=== PATIENT | female | born 1980 | race Caucasian/White ===

== ENCOUNTER 2016-10-25 16:09 | Emergency (ER) | payer MEDICARE, MEDICAID ==
[~2016-10-25] VITALS: Ht 160 cm; Wt 135.0 kg
[~2016-10-25 16:09] MED LIST: CIPR500T4 PO; METO10TA PO; [UNRECOGNIZED DRUG - CODE] PO
[2016-10-25 16:30] VITALS: BP 160/99; PULSE 88; RESP 16; TEMP 99.7; O2SAT 98
--- NOTE | 2016-10-25 17:05 | PD ---
HPI Chief Complaint: Laceration/Skin Injury Time Seen by Provider: 17:03 Travel History International Travel<30 days: No Contact w/Intl Traveler<30days: No Traveled to known affect area: No History of Present Illness HPI 36-year-old female presents to the ED for evaluation of right toe laceration, sustained approximately 11 AM while taking shower. On presentation she endorses pain of the great toe, worsened with ambulation. She also endorses numbness. She denies weakness, tingling, limitations to range of motion of the extremity. She is unsure lasted a tetanus immunization. No treatment of that home. NKDA. PFSH Past Medical History Anxiety: Yes Diminished Hearing: No Headaches: Yes : 1 Para: 0 Social History Alcohol Use: No Tobacco Use: No Substance Use: No Allergies-Medications (Allergen,Severity, Reaction): Coded Allergies: No Known Allergies (Verified , 10/25/16) Reported Meds & Prescriptions Reported Meds & Active Scripts Active No Active Prescriptions or Reported Medications Review of Systems Except as stated in HPI: all other systems reviewed are Neg Physical Exam Narrative GENERAL: Well-nourished, well-developed obese white female in no acute distress. SKIN: Warm and dry. There is a 1.5 cm laceration of the lateral aspect of the left great toe. No active bleeding or visible foreign body. HEAD: Normocephalic. EYES: No scleral icterus. No injection or drainage. NECK: Supple, trachea midline. No JVD or lymphadenopathy. CARDIOVASCULAR: Regular rate and rhythm without murmurs, gallops, or rubs. RESPIRATORY: Breath sounds equal bilaterally. No accessory muscle use. GASTROINTESTINAL: Abdomen soft, non-tender, nondistended. MUSCULOSKELETAL: No cyanosis, or edema. Focused F lower extremity exam: 2+ radial pulse. Patient is able to flex and extend the toes and ankle. Cap refill less than 2 seconds. Sensation intact to light touch distally. BACK: Nontender without obvious deformity. No CVA tenderness. Data Data Last Documented VS Vital Signs Date Time Temp Pulse Resp B/P Pulse Ox O2 Delivery O2 Flow Rate FiO2 10/25/16 16:30 99.7 88 16 160/99 98 Orders Lidocaine 1% Inj (50 Ml) (Xylocaine 1% I (10/25/16 17:15) Tetanus/Diphtheria Tox Adult (Tetanus/Di (10/25/16 17:15) [facility] Medical Decision Making Medical Screen Exam Complete: Yes Emergency Medical Condition: Yes Differential Diagnosis laceration versus abrasion versus need for tetanus prophylaxis versus other Narrative Course 36-year-old female presents to the ED for evaluation of right toe laceration, sustained approximately 11 AM while taking shower. On presentation she endorses pain of the great toe, worsened with ambulation. She also endorses numbness. She denies weakness, tingling, limitations to range of motion of the extremity. She is unsure lasted a tetanus immunization. Vitals reviewed. Physical exam reveals a 1.5 cm laceration of the lateral aspect of the left great toe. No active bleeding or visible foreign body. No limitations to range of motion of the toe. Tetanus immunization was updated. Wound was closed with Dermabond. Please see my procedure note for details. Patient was instructed to monitor for signs of infection, follow up with the primary care provider. She indicated understanding of the instructions and is amenable to plan of care is. Patient is stable and discharged home. Procedures Procedure Narrative LACERATION LOCATION: Right great toe LENGTH: 1.5 cm NUMBER OF STITCHES/NEERU: None, closed with Dermabond REPAIR: The area of the laceration was prepped with Betadine and sterilely draped. A digital block was formed with 1% lidocaine. Good anesthesia was obtained. The wound was copiously irrigated and explored without evidence of foreign body, tendon injury or neurovascular injury. The wound was closed using Dermabond. This was a single layer repair. A sterile dressing was applied. The patient was advised to keep the dressing clean and dry. Patient tolerated the procedure well. Diagnosis Primary Impression: Laceration of right great toe Qualified Code: S91.111A - Laceration of right great toe without foreign body present or damage to nail, initial encounter Referrals: Primary Care Physician Patient Instructions: General Instructions, Laceration (ED) Additional Instructions: Rest, hydrate. The Dermabond creates a water tight dressing and will follow off on its own. You may bathe normally. Do not submerge the wound. Utilize [id number] pain medications, as described on the label, as needed. Monitor for signs of infection as discussed. Follow-up with your primary care provider next week. Return to the ED for any urgent or emergent medical condition. Scripts No Active Prescriptions or Reported Meds Disposition: 01 DISCHARGE HOME Condition: Stable Bessie Marshall Oct 25, 2016 17:05
[2016-10-25] MEDS ORDERED: LIDOCAINE HCL 1% 50 ML VIAL INFIL ONE (17:15)
[2016-10-25] MEDS ORDERED: TETANUS/DIPHTHERIA TOXOID ADULT 0.5 ML VIAL IM ONE (17:15)
== END 2016-10-25 17:48 | disposition home or self-care (01) ==
LOC: PHED 16:09 → PHEFT 17:48
DX: S91.111A Laceration without foreign body of right great toe without damage to nail, initial encounter (principal); R20.0 Anesthesia of skin; X58.XXXA Exposure to other specified factors, initial encounter; Y93.E1 Activity, personal bathing and showering; Y92.002 Bathroom of unspecified non-institutional (private) residence as the place of occurrence of the external cause; Z23 Encounter for immunization
CPT/HCPCS: 12001; 90471; 90714

== ENCOUNTER 2017-02-23 11:57 | Emergency (ER) | payer MEDICARE, MEDICAID ==
[~2017-02-23] VITALS: Ht 162.6 cm; Wt 133.7 kg
[2017-02-23 12:02] VITALS: BP 134/90; PULSE 82; RESP 18; TEMP 99.9; O2SAT 99
[2017-02-23] MEDS ORDERED: CYCL1TAB PO (12:10)
--- NOTE | 2017-02-23 12:20 | PD ---
HPI . sore throat x 1 day Chief Complaint: ENT Complaint Time Seen by Provider: 12:19 Travel History International Travel<30 days: No Contact w/Intl Traveler<30days: No Traveled to known affect area: No History of Present Illness HPI 36 yr old female here with c/o sore throat x 1 day. She denies any difficulty breathing. She wants something for relief. No fever or chills or other symptoms. PFSH Past Medical History Anxiety: Yes Diabetes: Yes Patient Takes Glucophage: No Diminished Hearing: No Headaches: Yes ?: Not LMP: last month : 1 Para: 0 Past Surgical History Surgical History: No Previous Surgery Social History Alcohol Use: No Tobacco Use: No Substance Use: No Allergies-Medications (Allergen,Severity, Reaction): Coded Allergies: No Known Allergies (Verified , 02/23/17) Reported Meds & Prescriptions Reported Meds & Active Scripts Active Lidocaine Viscous Liq 2 % Liqd 5 Ml SWISH-SWAL QID PRN 5 Days Reported Cyclafem 1/35 (Norethindrone-Ethinyl Estradiol) 1-35 Mg-Mcg Tab 1 Tab PO DAILY Review of Systems General / Constitutional: No: Fever Eyes: No: Visual changes HENT: Positive: Sore Throat, No: Headaches Cardiovascular: No: Chest Pain or Discomfort Respiratory: No: Shortness of Breath Gastrointestinal: No: Abdominal Pain Genitourinary: No: Dysuria Musculoskeletal: No: Pain Skin: No Rash Neurologic: No: Weakness Psychiatric: No: Depression Endocrine: No: Polydipsia Hematologic/Lymphatic: No: Easy Bruising Physical Exam Narrative GENERAL: AAO x 3, no acute distress, Well-nourished, well-developed patient. SKIN: Warm and dry. No visible rashes or bruising. HEAD: Normocephalic and atraumatic. EYES: No scleral icterus. No injection or drainage. ENT: No nasal drainage noted. Mucous membranes pink. Airway patent. normal oropharynx, TM normal. NECK: Supple, trachea midline. No JVD. no lymphadenopathy CARDIOVASCULAR: Regular rate and rhythm without murmurs, gallops, or rubs. RESPIRATORY: Breath sounds equal bilaterally. No accessory muscle use. No rhonchi or rales. GASTROINTESTINAL: Abdomen soft, non-tender, EXTREMITIES: No cyanosis or edema. BACK: Nontender without obvious deformity. No CVA tenderness. NEURO: CN II-12 intact PSYCH: AAO x 3, normal affect. Data Data Last Documented VS Vital Signs Date Time Temp Pulse Resp B/P Pulse Ox O2 Delivery O2 Flow Rate FiO2 02/23/17 12:02 99.9 82 18 134/90 99 [facility] Medical Decision Making Medical Screen Exam Complete: Yes Emergency Medical Condition: Yes Medical Record Reviewed: Yes Differential Diagnosis pharyngitis, GERD, less likely esophagitis, viral syndrome Narrative Course 36 yr old female here with sore throat. Exam is unremarkable. Recommend Swish and Swallow for relief. Patient verbalized understanding of instructions, questions were answered, and thanked me for their care. I advised them if their condition worsens, please return to the nearest emergency room for further care. Diagnosis Primary Impression: Viral pharyngitis Patient Instructions: General Instructions Additional Instructions: Please return to emergency department if your symptoms return or worsen. Follow up with your primary care provider. Take medications as prescribed. Take medications as prescribed. Try salt water gargles. Do not share utensils, toothbrush, etc. If you develop difficulty breathing, please go to the nearest emergency room. Med/Other Pt SpecificInfo: Prescription(s) given Scripts Lidocaine Viscous Liq 2 % Liqd5 Ml SWISH-SWAL QID PRN (PAIN) 5 Days Ref 0 Prov:Misha Gaona MD 02/23/17 Disposition: 01 DISCHARGE HOME Condition: Stable Jennifer Nelson Feb 23, 2017 12:20
[2017-02-23] MEDS ORDERED: LIDO1SOL8 SWISH-SWAL (12:23)
== END 2017-02-23 12:33 | disposition home or self-care (01) ==
LOC: PHEFT 11:57
DX: J02.8 Acute pharyngitis due to other specified organisms (principal); E11.9 Type 2 diabetes mellitus without complications
CPT/HCPCS: 99283

== ENCOUNTER 2017-03-10 13:03 | Emergency (ER) | payer OTHER, MEDICARE, MEDICAID ==
[~2017-03-10 13:03] MED LIST changes: -CIPR500T4 PO; +CYCL1TAB PO; +LIDO1SOL8 SWISH-SWAL; -METO10TA PO; -[UNRECOGNIZED DRUG - CODE] PO
[2017-03-10 13:07] VITALS: BP 146/77; PULSE 99; RESP 20; TEMP 98.8; O2SAT 97
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
[2017-03-10] MEDS ORDERED: ROBA750T PO (13:36)
[2017-03-10] MEDS ORDERED: IBUP800T23 PO (13:36)
== END 2017-03-10 13:52 | disposition home or self-care (01) ==
LOC: PHEFT 13:03
DX: S29.012A Strain of muscle and tendon of back wall of thorax, initial encounter (principal); E11.9 Type 2 diabetes mellitus without complications; Z86.59 Personal history of other mental and behavioral disorders; V89.2XXA Person injured in unspecified motor-vehicle accident, traffic, initial encounter
CPT/HCPCS: 99283

== ENCOUNTER 2017-07-19 05:01 | Emergency (ER) | payer MEDICARE, MEDICAID ==
[~2017-07-19] VITALS: Ht 162.6 cm; Wt 133.2 kg
[~2017-07-19 05:01] MED LIST changes: +IBUP1TAB7 PO; -LIDO1SOL8 SWISH-SWAL; +ROBA750T PO
[2017-07-19 05:08] VITALS: BP 179/96; PULSE 82; RESP 20; TEMP 99; O2SAT 96
[2017-07-19] MEDS ORDERED: HYDR-3580 PO (05:18)
[2017-07-19] MEDS ORDERED: CYCL1TAB PO (05:18)
[2017-07-19] MEDS ORDERED: LISI20TA PO (05:18)
[2017-07-19] MEDS ORDERED: AMLO5TAB2 PO (05:18)
[2017-07-19] MEDS ORDERED: BACT800T5 PO (05:31)
--- NOTE | 2017-07-19 05:33 | PD ---
HPI Chief Complaint: ENT Complaint Time Seen by Provider: 05:16 Travel History International Travel<30 days: No Contact w/Intl Traveler<30days: No Traveled to known affect area: No History of Present Illness HPI The patient is a 36-year-old female that has several piercings in the left earlobe and, probably threw tossing and turning at night, she got these infected. She normally leaves her earrings on tonight. The patient noted that there was a infection in the earlobe and behind the ears is an infected lymph node. The lymph node is only several centimeters away from the infected ear lobe. The rest of her piercings cause no problems. PFSH Past Medical History Anxiety: Yes Diabetes: Yes Patient Takes Glucophage: No Diminished Hearing: No Headaches: Yes Hypertension: Yes Tetanus Vaccination: < 5 Years Influenza Vaccination: No ?: Not : 1 Para: 0 Past Surgical History Surgical History: No Previous Surgery Social History Alcohol Use: No Tobacco Use: No Substance Use: No Allergies-Medications (Allergen,Severity, Reaction): Coded Allergies: No Known Allergies (Verified Adverse Reaction, Unknown, 07/19/17) Reported Meds & Prescriptions Reported Meds & Active Scripts Active Reported Cyclafem 1/35 (Norethindrone-Ethinyl Estradiol) 1-35 Mg-Mcg Tab 1 Tab PO DAILY Lisinopril-Hctz 20-12.5 Mg Tab 1 Tab PO DAILY Amlodipine (Amlodipine Besylate) 5 Mg Tab 5 Mg PO DAILY Hydrocodone-Acetaminophen 7.5 Mg-325 Mg Tab 1 Tab PO Q6H PRN Review of Systems Except as stated in HPI: all other systems reviewed are Neg Physical Exam Narrative GENERAL: Well-nourished, well-developed patient in minimal apparent distress, her vital signs show blood pressure 179/96 but are otherwise unremarkable. SKIN: Focused skin assessment warm/dry. There is erythema and tenderness over the left earlobe as well as several erythematous piercings. No abscess, pus or fluctuance is noted. No red streak is noted. Only several centimeters away as a tender and slightly enlarged retroauricular earlobe. HEAD: Normocephalic. EYES: No scleral icterus. No injection or drainage. NECK: Supple, trachea midline. No JVD or lymphadenopathy. CARDIOVASCULAR: Regular rate and rhythm without murmurs, gallops, or rubs. RESPIRATORY: Breath sounds equal bilaterally. No accessory muscle use. GASTROINTESTINAL: Abdomen soft, non-tender, nondistended. MUSCULOSKELETAL: No cyanosis, or edema. BACK: Nontender without obvious deformity. No CVA tenderness. Data Data Last Documented VS Vital Signs Date Time Temp Pulse Resp B/P (MAP) Pulse Ox O2 Delivery O2 Flow Rate FiO2 07/19/17 05:08 99.0 82 20 179/96 (123) 96 MDM Medical Decision Making Medical Screen Exam Complete: Yes Emergency Medical Condition: Yes Medical Record Reviewed: Yes Differential Diagnosis Swollen lymph node, infected lymph node, cellulitis Narrative Course The patient has a swollen lymph node as result of some slight local cellulitis from the patient's ear piercings. The patient is to use warm compresses or heating pad on the left earlobe, keep piercings out until totally healed and is given Septra DS twice daily for 10 days. Diagnosis Primary Impression: Enlarged lymph node Additional Impression: Cellulitis of left earlobe Additional Instructions: As we discussed, turn the heating pad on its lowest setting an interposed a towel between your skin and the pad to avoid magdaleno. Warmth is useful but he does dangerous and does not help anymore than simple warmth. Do not replace year ear studs until the earlobe is totally healed and nonpainful. Med/Other Pt SpecificInfo: Prescription(s) given Scripts Sulfamethoxazole-Trimethoprim (Bactrim DS) 800-160 Mg Tab 1 TAB PO BID for Infection, #20 TAB 0 Refills Prov: David Mendiola MD 07/19/17 Disposition: 01 DISCHARGE HOME Condition: Stable David Mendiola MD Jul 19, 2017 05:32
[2017-07-19] MEDS ORDERED: SULFAMETHOXAZOLE-TRIMETHOPRIM DS 800-160 MG TAB PO ONE (05:45)
== END 2017-07-19 05:52 | disposition home or self-care (01) ==
LOC: PHED 05:01
DX: R59.0 Localized enlarged lymph nodes (principal); H60.12 Cellulitis of left external ear
CPT/HCPCS: 99283

== ENCOUNTER 2017-10-25 21:46 | Emergency (ER) | payer MEDICARE, MEDICAID ==
[~2017-10-25] VITALS: Ht 162.6 cm; Wt 136.4 kg
[~2017-10-25 21:46] MED LIST changes: +AMLO5TAB2 PO; +BACT800T5 PO; +HYDR-3580 PO; -IBUP1TAB7 PO; +LISI20TA PO; -ROBA750T PO
[2017-10-25 22:19] VITALS: BP 165/93; PULSE 85; RESP 18; TEMP 99.3; O2SAT 98
[2017-10-25] MEDS ORDERED: KETOROLAC TROMETHAMINE 30 MG/ML (IVP) VIAL IV PUSH ONE (23:30)
--- NOTE | 2017-10-25 23:50 | RADRPT ---
EXAM DATE/TIME: 10/25/2017 23:23 [facility] COMPARISON: No previous studies available for comparison. INDICATIONS : Left foot pain, swelling for 3 days with no known injury MEDICAL HISTORY : Diabetes mellitus type II. SURGICAL HISTORY : None. ENCOUNTER: Initial ACUITY: 3 days PAIN SCORE: 10/10 LOCATION: Left entire foot FINDINGS: Three view examination of the left foot demonstrates no soft tissue swelling, dislocation, or fractur e. The tarsal bones appear intact. Small calcaneal spur at the plantar aponeurosis. The interphala ngeal and metatarsophalangeal joints are intact. The calcaneus is intact. Bony mineralization is no rmal. CONCLUSION: 1. Small calcaneal spur at the plantar aponeurosis. 2. Otherwise negative. No fracture. Denton Marie MD on October 25, 2017 at 23:47 Board Certified Radiologist. This report was verified electronically.
[2017-10-26 00:12] LABS: AUTOMATED NEUTROPHIL # 6.1 TH/MM3 (1.8-7.7); BASOPHIL # 0.1 TH/MM3 (0-0.2); BASOPHIL % 0.6 % (0.0-2.0); EOSINOPHIL # 0.2 TH/MM3 (0-0.4); EOSINOPHIL % 2.4 % (0.0-4.0); HEMATOCRIT 38.1 % (35.0-46.0); HEMOGLOBIN 12.5 GM/DL (11.6-15.3); LYMPH % 32.6 % (9.0-44.0); LYMPHOCYTE # 3.4 TH/MM3 (1.0-4.8); MEAN CELL VOLUME 91.8 FL (80.0-100.0); MEAN CORPUSCULAR HEMOGLOBIN 30.2 PG (27.0-34.0); MEAN CORPUSCULAR HGB CONC 32.9 % (32.0-36.0); MEAN PLATELET VOLUME 6.7 FL (7.0-11.0); MONO % 4.5 % (0.0-8.0); MONOCYTE # 0.5 TH/MM3 (0-0.9); NEUT % 59.9 % (16.0-70.0); PLATELET COUNT 293 TH/MM3 (150-450); RED BLOOD COUNT 4.15 MIL/MM3 (4.00-5.30); RED CELL DISTRIBUTION WIDTH 13.9 % (11.6-17.2); WHITE BLOOD COUNT 10.3 TH/MM3 (4.0-11.0)
--- NOTE | 2017-10-26 00:15 | PD ---
HPI Chief Complaint: Edema Time Seen by Provider: 23:06 Travel History International Travel<30 days: No Contact w/Intl Traveler<30days: No Traveled to known affect area: No History of Present Illness HPI Patient is a 37 year old female who comes in complaining of left foot pain and swelling. She says it started yesterday while she was standing on it. She denies any injury. She says it hurts all over. She denies any wounds. She took some hydrocodone at home with minimal relief of her pain. She denies fever or chills. She denies any chest pain or SOB. She denies any leg pain. Severity is mild. PFSH Past Medical History Anxiety: Yes Diabetes: Yes Patient Takes Glucophage: No Diminished Hearing: No Headaches: Yes Hypertension: Yes Medical other: Yes (CHRONIC PAIN) ?: Not LMP: 10/21/17 : 1 Para: 0 Past Surgical History Surgical History: No Previous Surgery Social History Alcohol Use: No Tobacco Use: No Substance Use: No Allergies-Medications (Allergen,Severity, Reaction): Coded Allergies: No Known Allergies (Verified Adverse Reaction, Unknown, 10/25/17) Reported Meds & Prescriptions Reported Meds & Active Scripts Active Bactrim DS (Sulfamethoxazole-Trimethoprim) 800-160 Mg Tab 1 Tab PO BID Reported Cyclafem 1/35 (Norethindrone-Ethinyl Estradiol) 1-35 Mg-Mcg Tab 1 Tab PO DAILY Lisinopril-Hctz 20-12.5 Mg Tab 1 Tab PO DAILY Amlodipine (Amlodipine Besylate) 5 Mg Tab 5 Mg PO DAILY Hydrocodone-Acetaminophen 7.5 Mg-325 Mg Tab 1 Tab PO Q6H PRN Review of Systems General / Constitutional: No: Fever, Chills HENT: No: Headaches, Lightheadedness Cardiovascular: No: Chest Pain or Discomfort Respiratory: No: Shortness of Breath Gastrointestinal: No: Nausea, Vomiting Musculoskeletal: Positive: Edema, Pain Skin: No Rash, No Change in Pigmentation, No Lesions Neurologic: No: Weakness, Dizziness Physical Exam Narrative GENERAL: Awake and alert, no acute distress. Morbidly obese. SKIN: Focused skin assessment warm/dry. No wounds or signs of infection. HEAD: Atraumatic. Normocephalic. EYES: Pupils equal and round. No scleral icterus. ENT: Mucous membranes pink and moist. CARDIOVASCULAR: Regular rate and rhythm. No murmur appreciated. RESPIRATORY: No accessory muscle use. Clear to auscultation. Breath sounds equal bilaterally. MUSCULOSKELETAL: No obvious deformities. No clubbing. No cyanosis. Lateral swelling of the lower extremities, left foot does not appear to be more swollen than the right. She is tender to palpation of the MTP joint. There is no warmth or erythema. No calf tenderness or swelling. NEUROLOGICAL: Awake and alert. No obvious cranial nerve deficits. Motor grossly within normal limits. Normal speech. PSYCHIATRIC: Appropriate mood and affect; insight and judgment normal. Data Data Last Documented VS Vital Signs Date Time Temp Pulse Resp B/P (MAP) Pulse Ox O2 Delivery O2 Flow Rate FiO2 10/25/17 22:19 99.3 85 18 165/93 (117) 98 Orders Orders Iv Access Insert/Monitor (10/25/17 23:18) Complete Blood Count With Diff (10/25/17 23:18) Comprehensive Metabolic Panel (10/25/17 23:18) D-Dimer (10/25/17 23:18) Act Partial Throm Time (Ptt) (10/25/17 23:18) Prothrombin Time / Inr (Pt) (10/25/17 23:18) Foot, Complete (Pde3vts) (10/25/17 ) Ketorolac Inj (Toradol Inj) (10/25/17 23:30) Ed Urine Pregnancytest Poc (10/25/17 23:18) Labs Laboratory Tests Test 10/26/17 00:02 [facility] Medical Decision Making Medical Screen Exam Complete: Yes Emergency Medical Condition: Yes Medical Record Reviewed: Yes Differential Diagnosis Arthritis versus gout versus DVT versus obesity Narrative Course Patient is a 37-year-old female comes in complaining of pain and swelling to her left foot. Exam shows tenderness to the MTP joint. IV established, labs sent. X-ray of the foot performed shows no acute abnormalities. Patient signed out to Dr. Gaona to follow up testing and disposition the patient. Shayla Resendez MD Oct 26, 2017 00:15
[2017-10-26 00:20] LABS: CHLORIDE 105 MEQ/L (98-107); SODIUM (NA) 138 MEQ/L (136-145)
[2017-10-26 00:23] LABS: CALCIUM 8.4 MG/DL (8.5-10.1)
[2017-10-26 00:24] LABS: ALBUMIN 3.2 GM/DL (3.4-5.0); BICARBONATE 28.2 MEQ/L (21.0-32.0); BLOOD UREA NITROGEN 7 MG/DL (7-18); GLUCOSE,RANDOM 94 MG/DL (74-106)
[2017-10-26 00:27] LABS: ALT (GPT) 19 U/L (10-53); AST (GOT) 14 U/L (15-37); CREATININE 0.64 MG/DL (0.50-1.00); GLOMERULAR FILTRATION RATE 103 ML/MIN (>89)
[2017-10-26 00:28] LABS: PROTHROMBIN TIME - PATIENT 10.4 SEC (9.8-11.6)
[2017-10-26 00:29] LABS: D-DIMER 0.64 MG/L FEU (0.00-0.50); TOTAL BILIRUBIN ADULT LESS THAN 0.1 MG/DL (0.2-1.0); TOTAL PROTEIN 7.7 GM/DL (6.4-8.2)
[2017-10-26 00:30] LABS: ALKALINE PHOSPHATASE 55 U/L (45-117)
[2017-10-26 02:13] VITALS: BP 153/78; PULSE 74; RESP 14
--- NOTE | 2017-10-26 02:30 | RADRPT ---
EXAM DATE/TIME: 10/26/2017 01:14 [facility] COMPARISON: No previous studies available for comparison. INDICATIONS : Left leg swelling. MEDICAL HISTORY : Hypertension. Glasses. Diabetes. Anxiety. SURGICAL HISTORY : None. ENCOUNTER: Initial ACUITY: 4 - 6 days PAIN SCORE: 9/10 LOCATION: Left leg. TECHNIQUE: Venous ultrasound of the leg was performed from the inguinal ligament to the proximal calf. Real-vinita e, color Doppler and spectral tracing, compression and augmentation techniques were used. FINDINGS: There is normal compressibility of the deep venous system from the inguinal region to the proximal ca lf. No echogenic clot is seen in the lumen of the common femoral, femoral, popliteal, and posterior tibial veins. There is a normal response of the venous system to proximal and distal augmentation an d respiration. CONCLUSION: Negative exam. No sonographic or Doppler findings of deep venous thrombosis. Denton Marie MD on October 26, 2017 at 2:28 Board Certified Radiologist. This report was verified electronically.
--- NOTE | 2017-10-26 02:34 | PD ---
Data Data Last Documented VS Vital Signs Date Time Temp Pulse Resp B/P (MAP) Pulse Ox O2 Delivery O2 Flow Rate FiO2 10/26/17 02:57 10/26/17 02:13 74 14 10/25/17 22:19 99.3 98 Orders Orders Iv Access Insert/Monitor (10/25/17 23:18) Complete Blood Count With Diff (10/25/17 23:18) Comprehensive Metabolic Panel (10/25/17 23:18) D-Dimer (10/25/17 23:18) Act Partial Throm Time (Ptt) (10/25/17 23:18) Prothrombin Time / Inr (Pt) (10/25/17 23:18) Foot, Complete (Lxc4ins) (10/25/17 ) Ketorolac Inj (Toradol Inj) (10/25/17 23:30) Ed Urine Pregnancytest Poc (10/25/17 23:18) Us Leg Venous Doppler (10/26/17 01:13) Ed Discharge Order (10/26/17 02:34) Labs Laboratory Tests Test 10/26/17 00:02 White Blood Count 10.3 TH/MM3 Red Blood Count 4.15 MIL/MM3 Hemoglobin 12.5 GM/DL Hematocrit 38.1 % Mean Corpuscular Volume 91.8 FL Mean Corpuscular Hemoglobin 30.2 PG Mean Corpuscular Hemoglobin Concent 32.9 % Red Cell Distribution Width 13.9 % Platelet Count 293 TH/MM3 Mean Platelet Volume 6.7 FL Neutrophils (%) (Auto) 59.9 % Lymphocytes (%) (Auto) 32.6 % Monocytes (%) (Auto) 4.5 % Eosinophils (%) (Auto) 2.4 % Basophils (%) (Auto) 0.6 % Neutrophils # (Auto) 6.1 TH/MM3 Lymphocytes # (Auto) 3.4 TH/MM3 Monocytes # (Auto) 0.5 TH/MM3 Eosinophils # (Auto) 0.2 TH/MM3 Basophils # (Auto) 0.1 TH/MM3 CBC Comment DIFF FINAL Differential Comment Prothrombin Time 10.4 SEC Prothromb Time International Ratio 1.0 RATIO Activated Partial Thromboplast Time 25.5 SEC D-Dimer Quantitative (PE/DVT) 0.64 MG/L FEU Blood Urea Nitrogen 7 MG/DL Creatinine 0.64 MG/DL Random Glucose 94 MG/DL Total Protein 7.7 GM/DL Albumin 3.2 GM/DL Calcium Level 8.4 MG/DL Alkaline Phosphatase 55 U/L Aspartate Amino Transf (AST/SGOT) 14 U/L Alanine Aminotransferase (ALT/SGPT) 19 U/L Total Bilirubin LESS THAN 0.1 MG/DL Sodium Level 138 MEQ/L Potassium Level 3.4 MEQ/L Chloride Level 105 MEQ/L Carbon Dioxide Level 28.2 MEQ/L Anion Gap 5 MEQ/L Estimat Glomerular Filtration Rate 103 ML/MIN [facility] Supervised Visit with DICKSON: Yes Narrative Course Patient CARE assume from Dr. Resendez at [id number]. This is a 37-year-old female presents emergency department for evaluation of left foot swelling. I was asked to follow-up an ultrasound of her legs her d-dimer was weakly positive. Ultrasound was negative for thrombosis. On my examination patient has some tender swelling over the dorsum of her left foot without any erythema. Certainly it is possible that the patient does have some dependent edema, gout is another possibility. Her pain is well under control and she was sleeping on my reassessment. At this time we discussed her negative workup here and recommended that she follow-up with a analysis analyst, she also has a small skin ulcer over the bunion of her left great toe. She states that she is going to follow-up with a regional engineer to have this biopsied. This looks like just a healing scab to me. Either way she is stable for discharge at this time. Recommend ibuprofen ice and elevating her extremity. Follow-up with primary care physician and discuss returning to criteria Diagnosis Primary Impression: Ankle swelling Disposition: 01 DISCHARGE HOME Condition: Stable Misha Gaona MD Oct 26, 2017 02:34
== END 2017-10-26 03:09 | disposition home or self-care (01) ==
LOC: PHED 21:46
DX: R60.9 Edema, unspecified (principal); M79.672 Pain in left foot; M25.472 Effusion, left ankle; E11.9 Type 2 diabetes mellitus without complications; I10 Essential (primary) hypertension
CPT/HCPCS: 73630; 80053; 84703; 85025; 85379; 85610; 85730; 93971; 96374; 99284; J1885

== ENCOUNTER 2017-12-10 22:06 | Emergency (ER) | payer MEDICARE, MEDICAID ==
[2017-12-10 22:09] VITALS: BP 190/103; PULSE 91; RESP 20; TEMP 96; TEMP 99.1; O2SAT 96
[2017-12-10 22:12] VITALS: BP 190/103; PULSE 91; RESP 20; TEMP 99.1; O2SAT 96
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
[2017-12-10] MEDS ORDERED: CLINDAMYCIN 600 MG/NS PREMIX 50 ML IV ONE (23:45)
[2017-12-10] MEDS ORDERED: DOXY100C PO (23:47)
[2017-12-10] MEDS ORDERED: BACT800T5 PO (23:47)
[2017-12-10] MEDS ORDERED: TRAM50 PO (23:48)
[2017-12-11 00:03] LABS: AUTOMATED NEUTROPHIL # 5.9 TH/MM3 (1.8-7.7); BASOPHIL # 0.1 TH/MM3 (0-0.2); BASOPHIL % 1.1 % (0.0-2.0); EOSINOPHIL # 0.2 TH/MM3 (0-0.4); EOSINOPHIL % 2.2 % (0.0-4.0); HEMATOCRIT 36.7 % (35.0-46.0); HEMOGLOBIN 12.4 GM/DL (11.6-15.3); LYMPH % 28.6 % (9.0-44.0); LYMPHOCYTE # 2.7 TH/MM3 (1.0-4.8); MEAN CELL VOLUME 90.5 FL (80.0-100.0); MEAN CORPUSCULAR HEMOGLOBIN 30.7 PG (27.0-34.0); MEAN CORPUSCULAR HGB CONC 33.9 % (32.0-36.0); MEAN PLATELET VOLUME 6.6 FL (7.0-11.0); MONO % 4.9 % (0.0-8.0); MONOCYTE # 0.5 TH/MM3 (0-0.9); NEUT % 63.2 % (16.0-70.0); PLATELET COUNT 281 TH/MM3 (150-450); RED BLOOD COUNT 4.06 MIL/MM3 (4.00-5.30); RED CELL DISTRIBUTION WIDTH 13.1 % (11.6-17.2); WHITE BLOOD COUNT 9.4 TH/MM3 (4.0-11.0)
[2017-12-11 00:18] LABS: BICARBONATE 28.1 MEQ/L (21.0-32.0); CALCIUM 8.9 MG/DL (8.5-10.1)
[2017-12-11 00:22] LABS: CREATININE 0.69 MG/DL (0.50-1.00)
[2017-12-11 01:45] VITALS: BP 188/94; PULSE 82; RESP 16; O2SAT 96
== END 2017-12-11 02:18 | disposition home or self-care (01) ==
LOC: PHED 22:06
DX: T24.031A Burn of unspecified degree of right lower leg, initial encounter (principal); L03.115 Cellulitis of right lower limb; B95.1 Streptococcus, group B, as the cause of diseases classified elsewhere; B96.89 Other specified bacterial agents as the cause of diseases classified elsewhere; X19.XXXA Contact with other heat and hot substances, initial encounter; I10 Essential (primary) hypertension; E11.9 Type 2 diabetes mellitus without complications; F41.9 Anxiety disorder, unspecified
CPT/HCPCS: 80048; 85025; 86403; 87040; 87070; 87077; 87186; 99283